=== PATIENT | female | born 1990 | race African-American/Black ===

== ENCOUNTER 2017-07-28 14:03 | Emergency (ER) | payer OTHER ==
[~2017-07-28] VITALS: Ht 160 cm; Wt 74.8 kg
[2017-07-28] MEDS ORDERED: NKM (14:21)
[2017-07-28 14:33] VITALS: BP 117/67
[2017-07-28] MEDS ORDERED: Fluorescein Strips RIGHT EYE ONE (14:45)
[2017-07-28] MEDS ORDERED: Tetracaine 0.5% Opth 4ml Soln RIGHT EYE ONE (14:45)
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
[2017-07-28] MEDS ORDERED: OCUFLOX5 ML OP (15:14)
[2017-07-28] MEDS ORDERED: Tetanus/Diptheria/Pertussis Vaccine 0.5ml Syr IM ONE (15:30)
[2017-07-28 15:36] VITALS: BP 117/67
== END 2017-07-28 15:41 | disposition home or self-care (01) ==
LOC: EMR 14:20
DX: S00.211A Abrasion of right eyelid and periocular area, initial encounter (principal); S05.01XA Injury of conjunctiva and corneal abrasion without foreign body, right eye, initial encounter; F40.02 Agoraphobia without panic disorder; Z23 Encounter for immunization; Y00.XXXA Assault by blunt object, initial encounter; Y92.9 Unspecified place or not applicable; Y99.0 Civilian activity done for income or pay
CPT/HCPCS: 90471; 90715; 99284

== ENCOUNTER 2017-08-05 15:30 | Emergency (ER) | payer MEDICAID, OTHER ==
[~2017-08-05] VITALS: Ht 162.6 cm; Wt 72.6 kg
[~2017-08-05 15:30] MED LIST: NKM; OCUFLOX5 ML OP
[2017-08-05 17:13] LABS: APPEARANCE,URINE CLEAR; KETONES,URINE NEGATIVE (NEGATIVE); LEUKOCYTE ESTERASE ,URINE 1+ (NEGATIVE); NITRITE,URINE NEGATIVE (NEGATIVE); PH,URINE 7 (4.5-8.0); PROTEIN,URINE 1+ (NEGATIVE); UROBILINOGEN,URINE 4 MG/DL (0.0-1.0)
[2017-08-05 17:25] LABS: BACTERIA,URINE FEW /HPF; RBC,URINE 0-2 /HPF (0 - 2); SQUAMOUS EPITHELIAL CELL,UR FEW /LPF (NONE/OCC)
[2017-08-05] MEDS ORDERED: ZANTAC150 MG ORAL (17:26)
[2017-08-05] MEDS ORDERED: TYLENOL EXTRA500 MG ORAL (17:26)
[2017-08-05] MEDS ORDERED: ZOFRAN ODT4 MG ORAL (17:26)
--- NOTE | 2017-08-05 17:29 | Emergency Room Report ---
History of Present Illness General Chief Complaint: General Complaint Source: Patient Present Illness HPI 27-year-old female presents to the emergency department complaining of nausea and vomiting x2 days in addition to intermittent headache that she rates as 8/ 10 in severity. Patient reports to other ill contacts that have similar symptoms. Patient reports progressive onset she denies abdominal pain denies rashes denies fevers or chills. Patient denies head trauma, recent fall, weakness in the extremities, dizziness or visual changes. Patient denies blood in the vomit. Patient denies constipation, diarrhea, hematochezia or black tarry stools. She denies . Denies CP, Palpitations, LOC, AMS, dizziness, Changes in Vision, Sensation, paresthesias, or a sudden severe headache. Allergies: Coded Allergies: No Known Allergies (Unverified , 07/28/17) Patient History Past Medical History: see triage record Past Surgical History: none Pertinent Family History: none Now: No Immunizations: UTD Reviewed Nursing Documentation: PMH: Agreed, PSxH: Agreed Nursing Documentation-PMH Past Medical History: No Stated History Review of Systems All Other Systems: negative except mentioned in HPI Physical Exam Vital Signs Date Time Temp Pulse Resp B/P (MAP) Pulse Ox O2 Delivery O2 Flow Rate FiO2 08/05/17 15:51 97.9 92 18 107/63 100 Room Air Sp02 EP Interpretation: reviewed, normal General Appearance: no apparent distress, alert, GCS 15, non-toxic Head: normocephalic, atraumatic Eyes: bilateral eye normal inspection, bilateral eye PERRL ENT: hearing grossly normal, normal voice Neck: full range of motion, no meningismus, no bony tend Respiratory: chest non-tender, lungs clear, normal breath sounds, no respiratory distress, no wheezing, speaking full sentences Cardiovascular #1: regular rate, rhythm Gastrointestinal: normal bowel sounds, non tender, soft Genitourinary: normal inspection, no CVA tenderness Musculoskeletal: back normal, gait/station normal, normal range of motion, non- tender Neurologic: alert, oriented x3, responsive, motor strength/tone normal, sensory intact, normal gait, speech normal, grossly normal Skin: normal color, no rash, warm/dry, well hydrated Medical Decision Making PA Attestation Dr. Schultz is my supervising Physician whom patient management has been discussed with. Diagnostic Impression: Primary Impression: Nausea & vomiting Qualified Codes: R11.2 - Nausea with vomiting, unspecified ER Course 27-year-old female presents to the emergency department complaining of nausea and vomiting x2 days in addition to intermittent headache that she rates as 8/ 10 in severity. Patient reports to other ill contacts that have similar symptoms. Patient reports progressive onset she denies abdominal pain denies rashes denies fevers or chills. Patient denies head trauma, recent fall, weakness in the extremities, dizziness or visual changes. Patient denies blood in the vomit. Patient denies constipation, diarrhea, hematochezia or black tarry stools. She denies . Denies CP, Palpitations, LOC, AMS, dizziness, Changes in Vision, Sensation, paresthesias, or a sudden severe headache. Ddx considered but are not limited to GE, colitis, acute appy, SBO, Cyclical Vomiting secondary to THC, Hep. A, * Vital signs: pt. is afebrile, H&PE are most consistent with nausea and vomiting most likely viral in etiology due to close ill contacts who;s symptoms preceded onset of pt. no rashes or skin color changes. ORDERS: -None required at this time, the dx is clinical. -Urine Hcg: Negative -UDS: no evidence of infection ED INTERVENTIONS: -Zofran 4mg -Zantac -Tylenol PO DISCHARGE: At this time pt. is stable for d/c to home. Will provide printed patient care instructions, and any necessary prescriptions. Care plan and follow up instructions have been discussed with the patient prior to discharge. Labs Test 08/05/17 16:30 Urine Color Yellow Urine Appearance Clear Urine pH 7 (4.5-8.0) Urine Specific [place] 1.010 (1.005-1.035) Urine Protein 1+ (NEGATIVE) Urine Glucose (UA) Negative (NEGATIVE) Urine Ketones Negative (NEGATIVE) Urine Occult Blood Negative (NEGATIVE) Urine Nitrite Negative (NEGATIVE) Urine Bilirubin Negative (NEGATIVE) Urine Urobilinogen 4 MG/DL (0.0-1.0) Urine Leukocyte Esterase 1+ (NEGATIVE) Urine RBC 0-2 /HPF (0 - 2) Urine WBC 2-4 /HPF (0 - 2) Urine Squamous Epithelial Cells Few /LPF (NONE/OCC) Urine Bacteria Few /HPF (NONE) Urine HCG, Qualitative Negative Last Vital Signs Date Time Temp Pulse Resp B/P (MAP) Pulse Ox O2 Delivery O2 Flow Rate FiO2 08/05/17 15:51 97.9 92 18 107/63 100 Room Air Disposition: HOME, SELF-CARE Condition: Stable Scripts Ranitidine Hcl* (ZANTAC*) 150 Mg Tablet 150 MG ORAL TWICE A DAY, #20 TAB Prov: Nolvia Higgins 08/05/17 Acetaminophen* (TYLENOL EXTRA STRENGTH*) 500 Mg Tablet 500 MG ORAL Q6H Y for Mild Pain/Temp > 100.5, #20 TAB 0 Refills Prov: Nolvia Higgins 08/05/17 Ondansetron Odt* (ZOFRAN ODT*) 4 Mg Tab.rapdis 4 MG ORAL Q6H Y for Nausea & Vomiting, #20 TAB Prov: Nolvia Higgins. 08/05/17 Referrals: NOT CHOSEN IPA/MD,REFERRING (PCP) Patient Instructions: Nausea and Vomiting, Adult Additional Instructions: Take medications as directed. Follow up with a Primary Care Provider in 3-5 days, even if your symptoms have resolved. --Please review list of primary care clinics, if you do not already have a primary care provider Return sooner to ED if new symptoms occur, or current symptoms become worse. - Please note that this Emergency Department Report was dictated using [employer] stapler technology software, occasionally this can lead to erroneous entry secondary to interpretation by the dictation equipment. oNlvia Higgins Aug 05, 2017 17:29
[2017-08-05 17:40] VITALS: BP 100/63
== END 2017-08-05 18:00 | disposition home or self-care (01) ==
LOC: EMR 16:35
DX: R11.2 Nausea with vomiting, unspecified (principal)
CPT/HCPCS: 81003; 81025; 99284

== ENCOUNTER 2018-02-02 21:42 | Emergency (ER) | payer MEDICAID ==
[~2018-02-02] VITALS: Ht 160 cm; Wt 72.6 kg
[~2018-02-02 21:42] MED LIST changes: +TYLENOL EXTRA500 MG ORAL; +ZANTAC150 MG ORAL; +ZOFRAN ODT4 MG ORAL
[2018-02-02] MEDS ORDERED: Isovue-300 100ml vial INJ PRN (22:45)
[2018-02-02 22:52] VITALS: BP 101/52
[2018-02-02 23:24] LABS: BASOPHILS % (AUTO) 1.5 % (0.0-2.0); EOSINOPHILS % (AUTO) 4.5 % (0.0-3.0); HEMOGLOBIN 13.7 G/DL (12.0-16.0); LYMPHOCYTES % (AUTO) 26.3 % (20.0-45.0); MEAN CORPUSCULAR VOLUME 83 FL (80-99); MONOCYTES % (AUTO) 7.4 % (1.0-10.0); NEUTROPHILS % (AUTO) 60.2 % (45.0-75.0); PLATELET COUNT 275 K/UL (150-450); RED BLOOD COUNT 4.95 M/UL (4.20-5.40); RED CELL DISTRIBUTION WIDTH 14.2 % (11.6-14.8); WHITE BLOOD COUNT 7.9 K/UL (4.8-10.8)
[2018-02-02 23:38] LABS: ANION GAP 8 mmol/L (5-15); BLOOD UREA NITROGEN 10 mg/dL (7-18); CALCIUM 8.6 MG/DL (8.5-10.1); CARBON DIOXIDE 27 MMOL/L (21-32); CHLORIDE 105 MMOL/L (98-107); CREATININE 0.8 MG/DL (0.55-1.30); POTASSIUM 3.7 MMOL/L (3.5-5.1); SODIUM 140 MMOL/L (136-145)
[2018-02-02 23:43] LABS: ALANINE AMINOTRANSFERASE 31 U/L (12-78); ALBUMIN 3.8 G/DL (3.4-5.0); ALBUMIN/GLOBULIN RATIO 1.1 (1.0-2.7); ALKALINE PHOSPHATASE 113 U/L (46-116); ASPARTATE AMINO TRANSFERASE 17 U/L (15-37); BILIRUBIN,TOTAL 0.2 MG/DL (0.2-1.0)
[2018-02-03] MEDS ORDERED: NORCO 5-325 TA1 EACH ORAL (01:44)
[2018-02-03] MEDS ORDERED: IBUPROFEN600 MG ORAL (01:44)
[2018-02-03 01:56] VITALS: BP 96/50
[2018-02-03 01:57] VITALS: BP 96/50
--- NOTE | 2018-02-03 05:20 | Emergency Room Report ---
History of Present Illness General Chief Complaint: General Complaint Source: Patient Present Illness HPI 27-year-old female presents ED complaining of back pain. States that she feels a lump on her back for the last month but is getting worse. States pain is 5 out of 10, dull, nonradiating. Denies any fevers or chills. Denies any bowel or bladder incontinence. Denies any leg or motor weakness. No other aggravating relieving factors. Denies any other associated symptoms Allergies: Coded Allergies: No Known Allergies (Unverified , 07/28/17) Patient History Past Medical History: none Past Surgical History: none Pertinent Family History: none Social History: Denies: smoking, alcohol use, drug use Last Menstrual Period: February 01 Now: No : 4 Para: 3 Immunizations: UTD Reviewed Nursing Documentation: PMH: Agreed; PSxH: Agreed Nursing Documentation-PMH Past Medical History: No Stated History Review of Systems All Other Systems: negative except mentioned in HPI Physical Exam Vital Signs Date Time Temp Pulse Resp B/P (MAP) Pulse Ox O2 Delivery O2 Flow Rate FiO2 02/02/18 21:49 98.4 18 98 Room Air 98.4 02/02/18 22:52 82 101/52 Sp02 EP Interpretation: reviewed, normal General Appearance: no apparent distress, alert, GCS 15, non-toxic Head: normocephalic, atraumatic Eyes: bilateral eye normal inspection, bilateral eye PERRL ENT: hearing grossly normal, normal pharynx, no angioedema, normal voice Neck: full range of motion, supple/symm/no masses Respiratory: chest non-tender, lungs clear, normal breath sounds, speaking full sentences Cardiovascular #1: regular rate, rhythm, no edema Cardiovascular #2: 2+ carotid (R), 2+ carotid (L), 2+ radial (R), 2+ radial (L) , 2+ dorsalis pedis (R), 2+ dorsalis pedis (L) Gastrointestinal: normal bowel sounds, non tender, soft, non-distended, no guarding, no rebound Rectal: deferred Genitourinary: normal inspection, no CVA tenderness, vertebral tenderness - swelling over L spine. TTP. no induration/erythema Musculoskeletal: back normal, gait/station normal, normal range of motion, non- tender Neurologic: alert, oriented x3, responsive, motor strength/tone normal, sensory intact, speech normal Psychiatric: judgement/insight normal, memory normal, mood/affect normal, no suicidal/homicidal ideation Reflexes: 3+ bicep (R), 3+ bicep (L), 3+ tricep (R), 3+ tricep (L), 3+ knee (R) , 3+ knee (L) Skin: normal color, no rash, warm/dry, well hydrated Lymphatic: no adenopathy Medical Decision Making Diagnostic Impression: Primary Impression: Back pain Qualified Codes: M54.5 - Low back pain ER Course Hospital Course 27-year-old female presents ED with pain/swelling to lower back Differential diagnosis includes- abscess, epidural abscess, cellulitis, fx Clinical course Patient placed on stretcher. After initial history and physical I ordered labs , CT L spine with contrast Labs - no leukocytosis, electrolytes ok CT scan shows no fracture, no evidence of epidural abscess or other infectious process Discussed findings with the patient. Patient is safe for discharge. We'll prescribe pain medications. Recommend close follow-up with PMD. I feel this is a highly complex case requiring extensive working including EKG/ Rhythm strip, Xray/CT/US, Blood/urine lab work, repeat exams while in ED, and administration of strong opiates/narcotics for pain control, admission to hospital or close patient follow up. Diagnosis - back pain Stable and discharged to home with Rx Angélica. Followup with PMD. Return to ED if symptoms recur or worsen Labs Test 02/02/18 23:10 White Blood Count 7.9 K/UL (4.8-10.8) Red Blood Count 4.95 M/UL (4.20-5.40) Hemoglobin 13.7 G/DL (12.0-16.0) Hematocrit 41.0 % (37.0-47.0) Mean Corpuscular Volume 83 FL (80-99) Mean Corpuscular Hemoglobin 27.7 PG (27.0-31.0) Mean Corpuscular Hemoglobin Concent 33.4 G/DL (32.0-36.0) Red Cell Distribution Width 14.2 % (11.6-14.8) Platelet Count 275 K/UL (150-450) Mean Platelet Volume 7.5 FL (6.5-10.1) Neutrophils (%) (Auto) 60.2 % (45.0-75.0) Lymphocytes (%) (Auto) 26.3 % (20.0-45.0) Monocytes (%) (Auto) 7.4 % (1.0-10.0) Eosinophils (%) (Auto) 4.5 % (0.0-3.0) Basophils (%) (Auto) 1.5 % (0.0-2.0) Urine HCG, Qualitative Negative (NEGATIVE) Sodium Level 140 MMOL/L (136-145) Potassium Level 3.7 MMOL/L (3.5-5.1) Chloride Level 105 MMOL/L (98-107) Carbon Dioxide Level 27 MMOL/L (21-32) Anion Gap 8 mmol/L (5-15) Blood Urea Nitrogen 10 mg/dL (7-18) Creatinine 0.8 MG/DL (0.55-1.30) Estimat Glomerular Filtration Rate > 60 mL/min (>60) Glucose Level 99 MG/DL (74-106) Calcium Level 8.6 MG/DL (8.5-10.1) Total Bilirubin 0.2 MG/DL (0.2-1.0) Aspartate Amino Transf (AST/SGOT) 17 U/L (15-37) Alanine Aminotransferase (ALT/SGPT) 31 U/L (12-78) Alkaline Phosphatase 113 U/L (46-116) Total Protein 7.3 G/DL (6.4-8.2) Albumin 3.8 G/DL (3.4-5.0) Globulin 3.5 g/dL Albumin/Globulin Ratio 1.1 (1.0-2.7) CT/MRI/US Diagnostic Results CT/MRI/US Diagnostic Results : Imaging Test Ordered: CT L spine Impression no acute process Last Vital Signs Date Time Temp Pulse Resp B/P (MAP) Pulse Ox O2 Delivery O2 Flow Rate FiO2 02/03/18 01:57 98.4 55 16 96/50 99 Room Air 98.4 Status: improved Disposition: HOME, SELF-CARE Condition: Stable Scripts Ibuprofen* (MOTRIN*) 600 Mg Tablet 600 MG ORAL Q8H PRN for For Pain, #30 TAB 0 Refills Prov: John Woodard MD 02/03/18 Hydrocodone Bit/Acetaminophen 5-325* (NORCO 5-325*) 1 Each Tablet 1 TAB ORAL Q6H PRN for For Pain, #10 TAB 0 Refills Prov: John Woodard MD 02/03/18 Referrals: Reinaldo Whitaker Patient Instructions: Back Pain, Adult, [id number] John Woodard MD Feb 03, 2018 05:20
--- NOTE | 2018-02-03 13:07 | Diagnostic Imaging Report ---
Indications: Lumbar pain for 4 days Technique: Spiral acquisitions obtained through the lumbar spine. Multiplanar reconstructions were generated. No IV contrast utilized. Total dose length product 484.77 mGycm. CTDIvol(s) 14.37 mGy. Dose reduction achieved using automated exposure control Comparison: none Findings: Bony alignment is normal. Vertebral body heights are preserved. The disc spaces are preserved. Sacroiliac joint spaces are preserved. No significant disc bulge or protrusion, spinal stenosis, or neural foraminal stenosis. There is a small amount of free pelvic fluid incidentally noted. There is an intrauterine device in expected position. Impression: No acute or significant abnormality demonstrated Intrauterine device in the expected position Small amount of free pelvic fluid, presumably physiologic This agrees with the preliminary interpretation provided overnight by [facility] teleradiology service. The CT scanner at [facility] is accredited by the [employer] and the scans are performed using protocols designed to limit radiation exposure to as low as reasonably achievable to attain images of sufficient resolution adequate for diagnostic evaluation.
== END 2018-02-03 02:00 | disposition home or self-care (01) ==
LOC: EMR 22:09
DX: M54.5 Low back pain (principal)
CPT/HCPCS: 36415; 72132; 80053; 81025; 85025; 99284; Q9967

== ENCOUNTER 2018-08-05 21:03 | Emergency (ER) | payer SELFPAY ==
[~2018-08-05] VITALS: Ht 160 cm; Wt 68.0 kg
[~2018-08-05 21:03] MED LIST changes: +IBUPROFEN600 MG ORAL; +NORCO 5-325 TA1 EACH ORAL
[2018-08-05 21:18] VITALS: BP 115/66
--- NOTE | 2018-08-05 21:54 | Emergency Room Report ---
History of Present Illness General Chief Complaint: Upper Extremity Injury Source: Patient Present Illness HPI Is a 28-year-old female who is right-hand dominant. She presents with finger pain. She jammed her finger about 10 days ago. Since then her fingers been swollen. Worse when she moved. 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 Denies any fever chills but denies any nausea vomiting. Pain is 7 out of 10. No other complaint. No radiation. Allergies: Coded Allergies: No Known Allergies (Unverified , 07/28/17) Patient History Past Medical History: see triage record, old chart reviewed Past Surgical History: none Pertinent Family History: none Social History: Denies: smoking Last Menstrual Period: 06/28/2018 Now: No : 4 Para: 3 Immunizations: other Reviewed Nursing Documentation: PMH: Agreed; PSxH: Agreed Nursing Documentation-PMH Past Medical History: No Stated History Review of Systems Eye: Denies: eye pain, blurred vision ENT: Denies: ear pain, nose congestion, throat swelling Respiratory: Denies: cough, shortness of breath Cardiovascular: Denies: chest pain, palpitations Gastrointestinal: Denies: abdominal pain, diarrhea, nausea, vomiting Musculoskeletal: Reports: joint pain, joint swelling; Denies: back pain Skin: Denies: rash Neurological: Denies: headache, numbness Endocrine: Denies: increased thirst, increased urine Hematologic/Lymphatic: Denies: easy bruising All Other Systems: negative except mentioned in HPI Physical Exam Vital Signs Date Time Temp Pulse Resp B/P (MAP) Pulse Ox O2 Delivery O2 Flow Rate FiO2 08/05/18 21:10 98.2 88 16 115/66 97 Room Air vitals normal Sp02 EP Interpretation: reviewed, normal General Appearance: well appearing, no apparent distress, alert Head: normocephalic, atraumatic Eyes: bilateral eye PERRL, bilateral eye EOMI ENT: hearing grossly normal, normal pharynx Neck: full range of motion, supple, no meningismus Respiratory: chest non-tender, lungs clear, normal breath sounds Cardiovascular #1: regular rate, rhythm, no murmur Gastrointestinal: normal bowel sounds, non tender, no mass, no organomegaly, no bruit, non-distended Musculoskeletal: back normal, gait/station normal, normal range of motion, other - Right middle finger: She has tenderness and edema to the distal phalanx and the DIP joint. Decreased range of motion secondary to pain. Minimal pain to the MCP joint. Sensation normal. Neurologic: alert, oriented x3 Psychiatric: mood/affect normal Skin: warm/dry Procedures Splinting Splinting : Consent: Verbal Location: Finger Pre-Made Type: metal Pre-Proc Neuro Vasc Exam: normal Post-Proc Neuro Vasc Exam: normal Patient Tolerated: Well Complications: None Medical Decision Making Diagnostic Impression: Primary Impression: Sprain of finger of right hand Qualified Codes: S63.632A - Sprain of interphalangeal joint of right middle finger, initial encounter ER Course Patient with a finger sprain. No evidence of any fracture or dislocation. No evidence of any paronychia. Other X-Ray Diagnostic Results Other X-Ray Diagnostic Results : X-Ray ordered: X-rays finger # of Views/Limited Vs Complete: 3 View Indication: Pain EP Interpretation: Yes Interpretation: no dislocation, no soft tissue swelling, no fractures Impression: No acute disease Electronically Signed by: Arron Chambers MD Last Vital Signs Date Time Temp Pulse Resp B/P (MAP) Pulse Ox O2 Delivery O2 Flow Rate FiO2 08/05/18 21:18 98.2 78 16 115/66 97 Room Air Status: improved Disposition: HOME, SELF-CARE Condition: Stable Scripts Ibuprofen* (MOTRIN*) 600 Mg Tablet 600 MG ORAL THREE TIMES A DAY, #30 TAB 0 Refills Prov: Arron Chambers MD 08/05/18 Additional Instructions: Elevated finger. Ice pack to the area. Return if symptom worsen. Follow-up with your doctor in 7 days. Arron Chambers MD Aug 05, 2018 21:54
[2018-08-05] MEDS ORDERED: IBUPROFEN600 MG ORAL (21:58)
[2018-08-05] MEDS ORDERED: Norco 5mg/325mg tab ORAL ONE (22:00)
[2018-08-05 23:08] VITALS: BP 115/66
--- NOTE | 2018-08-06 09:31 | Diagnostic Imaging Report ---
Indication: Pain Technique: 3 views of the right second third and fourth fingers Comparison: none Findings: Finger nail decorations obscured the terminal dom of the digits on multiple projections. No definite acute fractures. No dislocations. The joint spaces are preserved Impression: Somewhat limited exam, as described. No definite acute bony trauma
== END 2018-08-05 22:14 | disposition home or self-care (01) ==
LOC: EMR 22:14
DX: S63.632A Sprain of interphalangeal joint of right middle finger, initial encounter (principal); X58.XXXA Exposure to other specified factors, initial encounter; Y92.9 Unspecified place or not applicable
CPT/HCPCS: 29130; 99283

== ENCOUNTER 2018-08-09 10:13 | Emergency (ER) | payer SELFPAY ==
[~2018-08-09] VITALS: Ht 160 cm; Wt 68.9 kg
[2018-08-09] MEDS ORDERED: NKM (10:30)
[2018-08-09 10:32] VITALS: BP 118/82
--- NOTE | 2018-08-09 11:02 | Emergency Room Report ---
History of Present Illness General Chief Complaint: Skin Rash/Abscess Source: Patient Present Illness HPI Patient is a 28-year-old female who presented after increased finger swelling and discomfort. Patient gradual onset of symptoms. Patient had recent nail injury. She had reported having increased discomfort associated with some discharge. Pain is worse with movement. Allergies: Coded Allergies: No Known Allergies (Unverified , 07/28/17) Patient History Reviewed Nursing Documentation: PMH: Agreed; PSxH: Agreed Nursing Documentation-PMH Past Medical History: No History, Except For Review of Systems All Other Systems: negative except mentioned in HPI Physical Exam Vital Signs Date Time Temp Pulse Resp B/P (MAP) Pulse Ox O2 Delivery O2 Flow Rate FiO2 08/09/18 10:22 98.1 76 18 118/82 98 Room Air Sp02 EP Interpretation: reviewed, normal General Appearance: normal inspection, well appearing, no apparent distress, alert, GCS 15 Head: atraumatic ENT: normal ENT inspection, hearing grossly normal, normal voice Neck: normal inspection, full range of motion, supple, no bony tend Respiratory: normal inspection, lungs clear, normal breath sounds, no respiratory distress, no retraction, no wheezing Cardiovascular #1: regular rate, rhythm, no edema Gastrointestinal: normal inspection, normal bowel sounds, non tender, soft, no guarding, no hernia Genitourinary: no CVA tenderness Musculoskeletal: normal inspection, back normal, normal range of motion Neurologic: normal inspection, alert, responsive, speech normal Psychiatric: normal inspection, judgement/insight normal, mood/affect normal Skin: no rash, other - middle finger swelling fluctuance, thickening Procedures Incision and Drainage Incision and Drainage : Consent: Verbal Site: right middle finger Blade Size: 15 I & D Procedure: betadine prep, sterile drapes applied, sterile dressing applied Wound Location: upper extremity Wound's Depth, Shape: superficial Wound Length (cm): 1 Wound Explored: clean Irrigated w/ Saline (ccs): 2 Anesthesia: 1% Lidocaine Volume Anesthetic (ccs): 1 Patient Tolerated: Well Complications: None Medical Decision Making Diagnostic Impression: Primary Impression: Paronychia of finger ER Course The patient presented for increased finger pain. Differential diagnosis included was not limited to fracture, dislocation, sprain, the paronychial infection among others. Patient has a benign exam and does not appear to require any further imaging or laboratory testing at this time. The patient presented a with a paronychia. The patient consented for incision and drainage. Drained the large amount of purulent material. The patient tolerated well. Patient is given prescription for Keflex. Last Vital Signs Date Time Temp Pulse Resp B/P (MAP) Pulse Ox O2 Delivery O2 Flow Rate FiO2 08/09/18 10:32 98.1 18 118/82 98 Room Air 08/09/18 10:22 76 Status: improved Disposition: HOME, SELF-CARE Condition: Stable Scripts Ibuprofen* (MOTRIN*) 600 Mg Tablet 600 MG ORAL THREE TIMES A DAY, #30 TAB 0 Refills Prov: Everett Schultz MD 08/09/18 Cephalexin* (KEFLEX*) 500 Mg Capsule 500 MG ORAL EVERY 6 HOURS, #28 CAP Prov: Everett Schultz MD 08/09/18 Everett Schultz MD Aug 09, 2018 11:02
[2018-08-09] MEDS ORDERED: Bupivacaine 0.5% Inj 30 ml vial INJ ONE (11:30)
[2018-08-09] MEDS ORDERED: CEPHALEXIN500 MG ORAL (12:19)
[2018-08-09] MEDS ORDERED: IBUPROFEN600 MG ORAL (12:20)
[2018-08-09 12:25] VITALS: BP 125/86
== END 2018-08-09 12:25 | disposition home or self-care (01) ==
LOC: EMR 10:40
DX: L03.011 Cellulitis of right finger (principal)
CPT/HCPCS: 99283